=== PATIENT | male | born 1995 | race Caucasian/White ===

== ENCOUNTER 2018-10-29 10:45 | Emergency (ER) | payer SELFPAY ==
[~2018-10-29] VITALS: Wt 138.6 kg
[2018-10-29 10:50] VITALS: BP 142/67; PULSE 67; RESP 18
--- NOTE | 2018-10-29 11:49 | ERD ---
ER Documentation Chief Complaint Chief Complaint LEFT EAR POSSIBLE FB, FEELS MOVEMENT HPI This is a 23-year-old male presents to the ED with complaints of foreign body in the left ear. Patient states he woke up this morning with a sensation of something crawling into his left ear. He states he was weeding in the ER waiting room when he yawned, shifted his head to the left and saw an insect move out of his ear. Patient states his symptoms resolved prior to my evaluation. He denies any difficulty hearing. Denies any discharge. Denies any trauma. Denies any fevers or chills. Denies any other symptoms. ROS All systems reviewed and are negative except as per history of present illness. PMhx/Soc Medical and Surgical Hx: pt denies Medical Hx, pt denies Surgical Hx Hx Alcohol Use: No Hx Substance Use: No Hx Tobacco Use: No Physical Exam Vitals Vital Signs Date Temp Pulse Resp B/P (MAP) Pulse Ox O2 O2 Flow FiO2 Time Delivery Rate 10/29/18 98.1 67 18 142/67 99 10:50 (92) Physical Exam Const: No acute distress Head: Atraumatic Eyes: Normal Conjunctiva. EOMI. PERRL. ENT: Normal External Ears, Nose and Mouth. Bilateral TMs pearly and tirado. No foreign body visualized in the ear canals. No pain with repletion of the pinna. No mastoid tenderness. Ext: No cyanosis, or edema Neur: Awake and alert Psych: Normal Mood and Affect Procedures/MDM This is a 23-year-old male presents with a foreign body in his left ear. Symptoms had resolved prior to my evaluation. His tympanic ear canals are clear on physical exam. There is no evidence of foreign body. Clinical picture not consistent with otitis externa, malignant otitis externa, acute otitis media, TM perforation, mastoiditis or meningitis. Patient was discharged home in stable condition. He was told to follow-up with his primary care provider sometime this week. Strict return precautions were discussed. Departure Diagnosis: Primary Impression: Foreign body in ear Encounter type: initial encounter Laterality: left Qualified Codes: T16.2XXA - Foreign body in left ear, initial encounter Condition: Stable Patient Instructions: Foreign Body, Ear Canal (Removed) Referrals: [facility] YOU HAVE RECEIVED A MEDICAL SCREENING EXAM AND THE RESULTS INDICATE THAT YOU DO NOT HAVE A CONDITION THAT REQUIRES URGENT TREATMENT IN THE EMERGENCY DEPARTMENT. FURTHER EVALUATION AND TREATMENT OF YOUR CONDITION CAN WAIT UNTIL YOU ARE SEEN IN YOUR DOCTORS OFFICE WITHIN THE NEXT 1-2 DAYS. IT IS YOUR RESPONSIBILITY TO MAKE AN APPOINTMENT FOR FOLOW-UP CARE. IF YOU HAVE A PRIMARY DOCTOR --you should call your primary doctor and schedule an appointment IF YOU DO NOT HAVE A PRIMARY DOCTOR YOU CAN CALL OUR PHYSICIAN REFERRAL HOTLINE AT IF YOU CAN NOT AFFORD TO SEE A PHYSICIAN YOU CAN CHOSE FROM THE FOLLOWING [facility] [address] [facility] [address] [facility]. [facility] [address] [facility] [address] [facility] [address] [facility] [facility] [address] [facility]. [facility] YOU HAVE RECEIVED A MEDICAL SCREENING EXAM AND THE RESULTS INDICATE THAT YOU DO NOT HAVE A CONDITION THAT REQUIRES URGENT TREATMENT IN THE EMERGENCY DEPARTMENT. FURTHER EVALUATION AND TREATMENT OF YOUR CONDITION CAN WAIT UNTIL YOU ARE SEEN IN YOUR DOCTORS OFFICE WITHIN THE NEXT 1-2 DAYS. IT IS YOUR RESPONSIBILITY TO MAKE AN APPOINTMENT FOR FOLOW-UP CARE. IF YOU HAVE A PRIMARY DOCTOR --you should call your primary doctor and schedule and appointment IF YOU DO NOT HAVE A PRIMARY DOCTOR YOU CAN CALL OUR PHYSICIAN REFERRAL HOTLINE AT . IF YOU CAN NOT AFFORD TO SEE A PHYSICIAN YOU CAN CHOSE FROM THE FOLLOWING [facility]: [facility] [address] [place] [address] [facility] [address] [place] [address] [facility] [address] [place] [address] [facility] URGENT CARE/SPECIALTIES Additional Instructions: Call your primary care doctor TOMORROW for an appointment during the next 2-4 days and bring all the information and medications prescribed. If the symptoms get worse and your provider is unavailable, return to the Emergency Department immediately. CRISTIAN PRETTY PA-C Oct 29, 2018 11:49
== END 2018-10-29 12:09 | disposition home or self-care (01) ==
LOC: FTE 10:45
DX: T16.2XXA Foreign body in left ear, initial encounter (principal); X58.XXXA Exposure to other specified factors, initial encounter; Y92.9 Unspecified place or not applicable
CPT/HCPCS: 99282